=== PATIENT | male | born 1985 | race Caucasian/White ===

== ENCOUNTER 2018-02-18 09:12 | Emergency (ER) | payer BC, OTHER ==
[2018-02-18 09:20] VITALS: BP 129/94
--- NOTE | 2018-02-18 10:27 | ER Document Report ---
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 On Thursday, he became disoriented while at work. On Thursday, he began to sweating profusely and having generalized cramping. Also feeling weak and not eating. Says he has lost 12 pounds over the past 2 weeks. Has had nausea and vomiting. TRAVEL OUTSIDE OF THE [place] IN LAST 30 DAYS: No - Related Data Allergies/Adverse Reactions: morphine [Morphine] Allergy (Verified 12/13/12 11:55) Penicillins Allergy (Verified 12/13/12 11:55) Past Medical History - Past Medical History Cardiac Medical History: Reports: Hx Heart Attack, Hx Hypertension Past Surgical History: Reports: Hx Orthopedic Surgery - Immunizations Hx Diphtheria, Pertussis, Tetanus Vaccination: Yes Physical Exam - Vital signs Vitals: Temp Pulse Resp BP Pulse Ox 97.7 F 82 16 129/94 H 100 02/18/18 09:16 02/18/18 09:16 02/18/18 09:16 02/18/18 09:16 02/18/18 09:16 Course - Vital Signs Vital signs: Temp Pulse Resp BP Pulse Ox 97.7 F 82 16 129/94 H 100 02/18/18 09:16 02/18/18 09:16 02/18/18 09:16 02/18/18 09:16 02/18/18 09:16 Doctor's Discharge - Discharge Referrals: MARIA ELENA MUNSON MD [Primary Care Provider] - Follow up as needed
[2018-02-18] MEDS: NORMAL SALINE 1000 ML 1,000 ML IV PRN ×2 (12:03→12:04)
[2018-02-18 12:35] LABS: APPEARANCE,URINE CLEAR; BILIRUBIN,URINE NEGATIVE (NEGATIVE); GLUCOSE, URINE NEGATIVE (NEGATIVE); KETONES,URINE NEGATIVE (NEGATIVE); LEUKOCYTE ESTERASE,URINE NEGATIVE (NEGATIVE); NITRITE,URINE NEGATIVE (NEGATIVE); PROTEIN,URINE 100 mg/dL (NEGATIVE); URINE SPECIFIC GRAVITY 1.028; UROBILINOGEN,URINE NEGATIVE mg/dL (<2.0)
[2018-02-18 12:43] LABS: COLOR,URINE YELLOW
--- NOTE | 2018-02-18 12:45 | EKG REPORT ---
SEVERITY:- BORDERLINE ECG - SINUS RHYTHM NONSPECIFIC ST-T CHANGES- INFERIOR LEADS : Confirmed by: Khanh Hummel MD 18-Feb-2018 12:43:40
--- NOTE | 2018-02-18 13:21 | ER Document Report ---
ED General - General Chief Complaint: Weakness Stated Complaint: POSSIBLE DEHYDRATION Time Seen by Provider: 02/18/18 10:24 Information source: Patient Notes: Patient is a 33-year-old male who presents today stating for around 4 days he is having some lightheadedness and dizziness. Patient states he has lost 12 pounds working outside in this heat wearing full gear on his current job. He states he did get some salt tablets to mix with Gatorade at work. He did have some vomiting yesterday. He states last evening he had some bilateral foot and abdominal cramping. He denies any abdominal pain at this time. He denies any fevers, headache, neck pain, chest pain, shortness of breath. Patient states he feels much improved here in the emergency department at this time. TRAVEL OUTSIDE OF THE [place] IN LAST 30 DAYS: No - HPI Onset: Other - See above Onset/Duration: Gradual Quality of pain: Achy Severity: Mild Pain Level: 1 Associated symptoms: Other - See above Exacerbated by: Denies Relieved by: Denies Similar symptoms previously: No Recently seen / treated by doctor: No - Related Data Allergies/Adverse Reactions: morphine [Morphine] Allergy (Verified 12/13/12 11:55) Penicillins Allergy (Verified 12/13/12 11:55) Past Medical History - Social History Smoking Status: Never Smoker Cigarette use (# per day): No Chew tobacco use (# tins/day): No Smoking Education Provided: No Frequency of alcohol use: Social Drug Abuse: None Family History: Reviewed & Not Pertinent, Other - Family members with cardiac disease. Patient has suicidal ideation: No Patient has homicidal ideation: No - Past Medical History Cardiac Medical History: Reports: Hx Heart Attack, Hx Hypertension Renal/ Medical History: Denies: Hx Peritoneal Dialysis Past Surgical History: Reports: Hx Orthopedic Surgery - Immunizations Hx Diphtheria, Pertussis, Tetanus Vaccination: Yes Review of Systems - Review of Systems Constitutional: denies: Fever EENT: denies: Eye discharge, Nose discharge Cardiovascular: denies: Chest pain, Palpitations Respiratory: denies: Short of breath Gastrointestinal: denies: Vomiting Genitourinary: denies: Dysuria Musculoskeletal: denies: Leg swelling Skin: Other - no hives. denies: Rash Neurological/Psychological: Other - no slurred speech -: Yes All other systems reviewed and negative Physical Exam - Vital signs Vitals: Temp Pulse Resp BP Pulse Ox 97.7 F 82 16 129/94 H 100 02/18/18 09:16 02/18/18 09:16 02/18/18 09:16 02/18/18 09:16 02/18/18 09:16 Course - Re-evaluation Re-evalutation: Given the above history and physical examination we will obtain basic labs, provide fluids, obtain a total CK, and reassess. Concerned about possible dehydration/rhabdomyolysis. 02/18/18 15:12 Labs as recorded. Normal CK. Normal creatinine. Patient denies any muscle cramps at this time. Electrolytes seem to be within normal limits. Patient has been rehydrated with 2 L of fluid. Patient will be discharged home with strict return precautions and instructions for hydration. - Vital Signs Vital signs: Temp Pulse Resp BP Pulse Ox 97.7 F 82 16 129/94 H 100 02/18/18 09:16 02/18/18 09:16 02/18/18 09:16 02/18/18 09:16 02/18/18 09:16 - Laboratory Result Diagrams: 02/18/18 12:49 02/18/18 14:25 Laboratory results interpreted by me: 02/18/18 02/18/18 02/18/18 10:40 12:49 14:25 Monocytes % 13.7 H BUN 28 H Direct Bilirubin 0.5 H AST 60 H Total Protein 8.3 H Urine Protein 100 H Discharge - Discharge Clinical Impression: Muscle cramp, Dehydration Condition: Good Disposition: HOME, SELF-CARE Additional Instructions: Back immediately for any repeat of muscle cramps, any chest pain, shortness of breath, fevers, joint swelling, or any other acute problems. Please follow-up with the primary doctor as we have discussed and make sure that you consume electrolyte rich fluids. Referrals: MARIA ELENA MUNSON MD [Primary Care Provider] - Follow up as needed
[2018-02-18 13:28] LABS: ABSOLUTE EOSINOPHILS # (AUTO) 0.1 10^3/uL (0.0-0.6); ABSOLUTE LYMPHOCYTES (AUTO) 1.4 10^3/uL (0.5-4.7); ABSOLUTE NEUT (AUTO) 4.7 10^3/uL (1.7-8.2); BASOPHILS % (AUTO) 0.5 % (0-2); EOSINOPHILS % (AUTO) 1.3 % (0-6); HEMATOCRIT 48.2 % (37.9-51.0); HEMOGLOBIN 16.8 g/dL (13.5-17.0); LYMPHOCYTES % (AUTO) 19.4 % (13-45); MEAN CORPUSCULAR HEMOGLOBIN 32.1 pg (27.0-33.4); MEAN CORPUSCULAR VOLUME 92 fl (80-97); MONOCYTES % (AUTO) 13.7 % (3-13); PLATELET COUNT 217 10^3/uL (150-450); RED BLOOD COUNT 5.25 10^6/uL (4.35-5.55); RED CELL DISTRIBUTION WIDTH 13.6 % (11.5-14.0); SEGMENTED NEUTROPHILS % (AUTO) 65.1 % (42-78); TOTAL CELLS COUNTED % (AUTO) 100 %; WHITE BLOOD COUNT 7.2 10^3/uL (4.0-10.5)
[2018-02-18 14:57] LABS: ALANINE AMINOTRANSFERASE 71 U/L (21-72); ALBUMIN 4.6 g/dL (3.5-5.0); ALKALINE PHOSPHATASE 87 U/L (38-126); ANION GAP 10 (5-19); ASPARTATE AMINO TRANSFERASE 60 U/L (17-59); BILIRUBIN,DIRECT 0.5 mg/dL (0.0-0.4); BLOOD UREA NITROGEN 28 mg/dL (7-20); CALCIUM 8.7 mg/dL (8.4-10.2); CARBON DIOXIDE 30 mmol/L (22-30); CHLORIDE 100 mmol/L (98-107); CREATINE KINASE 96 U/L (55-170); GLUCOSE 93 mg/dL (75-110); LIPASE 38.6 U/L (23-300); POTASSIUM 3.7 mmol/L (3.6-5.0); SODIUM 140.1 mmol/L (137-145); TOTAL PROTEIN 8.3 g/dL (6.3-8.2)
== END 2018-02-18 15:29 | disposition home or self-care (01) ==
LOC: ER 09:12
DX: E86.0 Dehydration (principal); R25.2 Cramp and spasm
CPT/HCPCS: 93005; 99285; 96360; 36415; 82550; 83690; 85025; 80053; 81001; 93010; J7030

== ENCOUNTER 2018-12-04 12:52 | Emergency (ER) | payer BC ==
--- NOTE | 2018-12-04 13:15 | ER Document Report ---
ED Medical Screen (RME) - General Chief Complaint: Nausea/Vomiting Stated Complaint: VOMITING Time Seen by Provider: 12/04/18 13:11 Primary Care Provider: MARIA ELENA MUNSON MD [Primary Care Provider] - Follow up as needed TRAVEL OUTSIDE OF THE [place] IN LAST 30 DAYS: No - HPI Notes: 12/04/18 13:14 Patient is a 33-year-old male with a history of hypertension who presents complaining of generalized weakness over the past couple weeks with nausea, vomiting, hematuria, feeling 'cloudy' over the past couple days. Patient states he does work outside and is not sure if he is becoming dehydrated or not. He will notice some palpitations on occasion as well. Denies MAST, fever, neck pain, URI, CP, SOB, Abd pain, back pain, or rash. I have treated and performed a rapid initial assessment of this patient. A comprehensive ED assessment and evaluation of the patient, analysis of test results and completion of medical decision making process will be conducted by additional ED providers. PHYSICAL EXAMINATION: GENERAL: Well-appearing, well-nourished and in no acute distress. A&Ox4. Answers questions appropriately. LUNGS: Breath sounds clear to auscultation bilaterally and equal. No wheezes rales or rhonchi. HEART: Regular rate and rhythm without murmurs, rubs, gallops. ABDOMEN: Soft, nondistended abdomen. No guarding, no rebound. Normal bowel sounds present. No CVA tenderness bilaterally. Grossly nontender (cannot elicit thorough abd exam w/o bed, however). NEUROLOGICAL: Normal speech, normal gait. Cranial nerves grossly intact PSYCH: Normal mood, normal affect. - Related Data Allergies/Adverse Reactions: morphine [Morphine] Allergy (Verified 12/13/12 11:55) Penicillins Allergy (Verified 12/13/12 11:55) Past Medical History - Past Medical History Cardiac Medical History: Reports: Hx Heart Attack, Hx Hypertension Renal/ Medical History: Denies: Hx Peritoneal Dialysis Past Surgical History: Reports: Hx Orthopedic Surgery - Immunizations Hx Diphtheria, Pertussis, Tetanus Vaccination: Yes Physical Exam - Vital signs Vitals: Temp Pulse Resp BP Pulse Ox 99.2 F 69 18 169/81 H 98 12/04/18 13:11 12/04/18 13:11 12/04/18 13:11 12/04/18 13:11 12/04/18 13:11 Course - Vital Signs Vital signs: Temp Pulse Resp BP Pulse Ox 99.2 F 69 18 169/81 H 98 12/04/18 13:11 12/04/18 13:11 12/04/18 13:11 12/04/18 13:11 12/04/18 13:11 Doctor's Discharge - Discharge Referrals: MARIA ELENA MUNSON MD [Primary Care Provider] - Follow up as needed
[2018-12-04] MEDS ORDERED: ONDANSETRON HCL INJ/PF 4 MG/2 ML SDV IV ONE (13:16)
[2018-12-04] MEDS ORDERED: NORMAL SALINE 1000 ML 1,000 ML IV ONE ×2 (13:16→16:39)
[2018-12-04 14:46] LABS: ABSOLUTE EOSINOPHILS # (AUTO) 0.1 10^3/uL (0.0-0.6); ABSOLUTE LYMPHOCYTES (AUTO) 1.4 10^3/uL (0.5-4.7); ABSOLUTE MONOCYTES (AUTO) 1.4 10^3/uL (0.1-1.4); ABSOLUTE NEUT (AUTO) 6.3 10^3/uL (1.7-8.2); BASOPHILS % (AUTO) 0.5 % (0-2); EOSINOPHILS % (AUTO) 0.9 % (0-6); HEMATOCRIT 45.8 % (37.9-51.0); HEMOGLOBIN 15.4 g/dL (13.5-17.0); LYMPHOCYTES % (AUTO) 15.5 % (13-45); MEAN CORPUSCULAR HEMOGLOBIN 30.5 pg (27.0-33.4); MEAN CORPUSCULAR HGB CONC 33.7 g/dL (32.0-36.0); MEAN CORPUSCULAR VOLUME 91 fl (80-97); MONOCYTES % (AUTO) 15.5 % (3-13); PLATELET COUNT 361 10^3/uL (150-450); RED BLOOD COUNT 5.06 10^6/uL (4.35-5.55); RED CELL DISTRIBUTION WIDTH 13.4 % (11.5-14.0); SEGMENTED NEUTROPHILS % (AUTO) 67.6 % (42-78); TOTAL CELLS COUNTED % (AUTO) 100 %; WHITE BLOOD COUNT 9.3 10^3/uL (4.0-10.5)
[2018-12-04 15:04] LABS: ALANINE AMINOTRANSFERASE 95 U/L (21-72); ALBUMIN 4.4 g/dL (3.5-5.0); ALKALINE PHOSPHATASE 64 U/L (38-126); ANION GAP 10 (5-19); ASPARTATE AMINO TRANSFERASE 51 U/L (17-59); BILIRUBIN,DIRECT 0.5 mg/dL (0.0-0.4); BILIRUBIN,TOTAL 1.1 mg/dL (0.2-1.3); BLOOD UREA NITROGEN 22 mg/dL (7-20); CALCIUM 9.2 mg/dL (8.4-10.2); CARBON DIOXIDE 36 mmol/L (22-30); CHLORIDE 93 mmol/L (98-107); CREATINE KINASE 484 U/L (55-170); GLUCOSE 90 mg/dL (75-110); POTASSIUM 4.1 mmol/L (3.6-5.0); SODIUM 138.9 mmol/L (137-145); TOTAL PROTEIN 7.4 g/dL (6.3-8.2)
[2018-12-04 15:53] LABS: APPEARANCE,URINE CLEAR; BILIRUBIN,URINE NEGATIVE (NEGATIVE); GLUCOSE, URINE 50 mg/dL (NEGATIVE); KETONES,URINE TRACE mg/dL (NEGATIVE); LEUKOCYTE ESTERASE,URINE NEGATIVE (NEGATIVE); NITRITE,URINE NEGATIVE (NEGATIVE); PROTEIN,URINE 30 mg/dL (NEGATIVE); URINE SPECIFIC GRAVITY 1.024
[2018-12-04 15:54] LABS: COLOR,URINE DARK YELLOW
--- NOTE | 2018-12-04 16:39 | ER Document Report ---
ED General - General Chief Complaint: Nausea/Vomiting Stated Complaint: VOMITING Time Seen by Provider: 12/04/18 13:11 Primary Care Provider: MARIA ELENA MUNSON MD [ACTIVE STAFF] - Follow up as needed Notes: 33-year-old male with a history of hypertension who presents complaining of generalized weakness over the past couple weeks with nausea, vomiting, hematuria, feeling 'cloudy' over the past couple days. 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 He noticed some palpitations on occasion as well. Denies MAST, fever, neck pain, URI, CP, SOB, Abd pain, back pain, or rash. TRAVEL OUTSIDE OF THE [place] IN LAST 30 DAYS: No - Related Data Allergies/Adverse Reactions: morphine [Morphine] Allergy (Verified 12/13/12 11:55) Penicillins Allergy (Verified 12/13/12 11:55) Past Medical History - Social History Smoking Status: Unknown if Ever Smoked Chew tobacco use (# tins/day): No Frequency of alcohol use: None Drug Abuse: None Family History: Reviewed & Not Pertinent, Other - Family members with cardiac disease. Patient has suicidal ideation: No Patient has homicidal ideation: No - Past Medical History Cardiac Medical History: Reports: Hx Heart Attack, Hx Hypertension Renal/ Medical History: Denies: Hx Peritoneal Dialysis Past Surgical History: Reports: Hx Orthopedic Surgery - Immunizations Hx Diphtheria, Pertussis, Tetanus Vaccination: Yes Review of Systems - Review of Systems Constitutional: See HPI EENT: No symptoms reported Cardiovascular: See HPI Respiratory: See HPI Gastrointestinal: See HPI Genitourinary: See HPI Male Genitourinary: No symptoms reported Musculoskeletal: No symptoms reported Skin: No symptoms reported Hematologic/Lymphatic: No symptoms reported Neurological/Psychological: See HPI Physical Exam - Vital signs Vitals: Temp Pulse Resp BP Pulse Ox 99.2 F 69 18 169/81 H 98 12/04/18 13:11 12/04/18 13:11 12/04/18 13:11 12/04/18 13:11 12/04/18 13:11 - Notes Notes: PHYSICAL EXAMINATION: Reviewed vital signs and charting by RN GENERAL: Alert, interacts well. No acute distress. HEAD: Normocephalic, atraumatic. EYES: Pupils equal and round. Extraocular movements intact. ENT: Oral mucosa moist, tongue midline. NECK: Full range of motion. Trachea midline. LUNGS: Clear to auscultation bilaterally, no wheezes, rales, or rhonchi. No respiratory distress. HEART: Regular rate and rhythm. No murmur ABDOMEN: soft, non-tender. No distention. Bowel sounds present EXTREMITIES: Moves all 4 extremities spontaneously. No edema, No cyanosis. PSYCH: Normal affect, normal mood. SKIN: Warm, dry, normal turgor. No rashes or lesions noted. Course - Re-evaluation Re-evalutation: 12/04/18 16:41 Generally well-appearing. Urinalysis does have trace ketones and is concentrated. Patient's presentation most consistent with dehydration. Patient received Zofran and 1 L normal saline in triage. He said he is still feeling some nausea. I have ordered a second bag of fluids and will give him Phenergan 25 mg IM 1 time. 12/05/18 21:01 Patient did not receive the normal saline or the Phenergan due to the nursing delay. Did discuss with patient how he feels he states he is feeling much better. Patient is ready to go home and I have given him education and return precautions. - Vital Signs Vital signs: Temp Pulse Resp BP Pulse Ox 98.1 F 93 18 137/73 H 96 12/04/18 19:32 12/04/18 19:32 12/04/18 19:32 12/04/18 19:32 12/04/18 19:32 - Laboratory Result Diagrams: 12/04/18 14:10 12/04/18 14:10 Laboratory results interpreted by me: 12/04/18 12/04/18 12/04/18 13:30 14:10 14:10 Monocytes % 15.5 H Chloride 93 L Carbon Dioxide 36 H BUN 22 H Direct Bilirubin 0.5 H ALT 95 H Creatine Kinase 484 H Urine Protein 30 H Urine Glucose (UA) 50 H Urine Ketones TRACE H Urine Urobilinogen 4.0 H Discharge - Discharge Clinical Impression: Dehydration Condition: Good Disposition: HOME, SELF-CARE Additional Instructions: Please be sure to drink plenty of fluids while out in the heat. You can purchase packets of electrolyte replacement solutions such as Pedialyte or propel that you can add to plain water. This will help to make sure that you are getting adequate electrolytes in addition to fluids while working outside. Please return to the emergency department if you pass out, developed diffuse muscle cramping, have persistent vomiting, or have any other symptoms that are worrisome to you. Prescriptions: RX: Promethazine HCl [Phenergan 25 mg Tablet] 25 mg PO ASDIR PRN #15 tablet PRN Reason: Referrals: MARIA ELENA MUNSON MD [ACTIVE STAFF] - Follow up as needed
[2018-12-04] MEDS ORDERED: PROMETHAZINE HCL INJ 50 MG/1 ML VIAL IM ONE (16:40)
[2018-12-04] MEDS ORDERED: PROMETHAZINE HCL INJ 25 MG/1 ML VIAL ONE (18:04)
[2018-12-04 19:48] VITALS: BP 137/73
--- NOTE | 2018-12-05 09:28 | EKG REPORT ---
SEVERITY:- ABNORMAL ECG - SINUS RHYTHM PROBABLE LEFT VENTRICULAR HYPERTROPHY NONSPECIFIC T ABNORMALITIES, INFERIOR LEADS : Confirmed by: Yuni Etienne MD 05-Dec-2018 09:28:15
== END 2018-12-04 19:47 | disposition home or self-care (01) ==
LOC: ER 12:52
DX: E86.0 Dehydration (principal); R11.2 Nausea with vomiting, unspecified; I10 Essential (primary) hypertension; Z88.6 Allergy status to analgesic agent; Z88.0 Allergy status to penicillin; I25.2 Old myocardial infarction
CPT/HCPCS: 93005; 99284; 96361; 96374; 36415; 87086; 82550; 83690; 84443; 85025; 80053; 81001; 93010; J2405; J7030; J2550